=== PATIENT | female | born 1965 | race Caucasian/White ===

== ENCOUNTER → 2019-02-25 | Outpatient (CLI) | payer OTHER ==
[~2019-02-25] MED LIST: DIATRIZOATE MEGL/DIATRIZOA SOD 30 ML BTL PO ONE; ESGIC; IOPAMIDOL 370 MG/ML 200 ML INFUS..BTL INJ ONE; SODIUM CHLORIDE 0.9% 50ML 50 ML ONE; TRAMADOL HCL50 M1 PO; Z.0.AMBIEN10 MG PO; Z.0.PHENERGAN25 M1 PO; Z.0.ZOFRAN8 MG PO
--- NOTE | 2019-02-28 08:17 | Diagnostic Imaging Report ---
EXAM: CT ABDOMEN AND PELVIS with IV CONTRAST DATE: 02/25/2019 Time stamp on Exam: 4:55 PM INDICATION: Periumbilical pain COMPARISON: None TECHNIQUE: The abdomen and pelvis were scanned using a multidetector helical scanner. Coronal and sagittal reformations were obtained. Routine protocol performed. Technique modification was utilized to maintain the lowest dose possible to the patient. IV Contrast: 100 cc of Isovue-370 Oral Contrast: Gastrografin intermixed with water Radiation Dose: Total DLP 339.36 mGy*cm Estimated effective dose: DLP x 0.015 x size factor FINDINGS: LOWER THORAX: No consolidations LIVER: No masses with decreased attenuation compatible with mild hepatic steatosis. BILIARY: The gallbladder is unremarkable. No ductal dilatation. SPLEEN: No masses PANCREAS: No masses ADRENALS: No nodules KIDNEYS: Symmetric perfusion. No enhancing masses. No hydronephrosis. GI TRACT: No distention, wall thickening or evidence of obstruction. VESSELS: Unremarkable PERITONEUM/RETROPERITONEUM: No free air or fluid LYMPH NODES: No lymphadenopathy REPRODUCTIVE ORGANS: Unremarkable BLADDER: Unremarkable SOFT TISSUES: No urachal cyst identified. Linear urachal duct extends to the umbilicus within the peritoneal cavity. There is no bowel fistula to the umbilicus. There is no evidence of a hernia. Slight soft tissue prominence in the region of the umbilicus is present. BONES: No suspicious bone lesions. IMPRESSION: 1. Urachal duct extending to the umbilicus without evidence of a urachal duct cyst. 2. Hepatic steatosis without evidence of a mass. Signed by: Dr. Fco Salter DO on 02/28/2019 8:14 AM
== END ==
LOC: CT 15:10
PROVIDERS: ATTEND Family Medicine
DX: Q89.8 Other specified congenital malformations (principal)
CPT/HCPCS: 74177; Q9967